=== PATIENT | female | born 1990 | race Caucasian/White ===

== ENCOUNTER 2025-02-21 15:49 | Emergency (ER) | payer MEDICAID, SELFPAY ==
--- NOTE | ~2025-02-21 | CT_ITS ---
EXAMINATION: CT HEAD WITHOUT IV CONTRAST HISTORY: L sided headache. TECHNIQUE: Unenhanced helical CT of the head was performed per standard departmental protocol. Coronal and sagittal reformats of the head were also evaluated. One or more of the following techniques was used for dose reduction: Automated exposure control, adjustment of the mA and/or kV according to patient size, use of iterative reconstruction technique. DLP: 591 mGy-cm COMPARISON: There are no prior studies available for comparison. FINDINGS: BRAIN: The brain parenchyma is unremarkable. There is normal romeo/white differentiation. The ventricular system is normal in size and configuration. There is no mass effect or midline shift. No intra- or extra-axial fluid collections are identified. SINUSES: The visualized paranasal sinuses are clear. The mastoid air cells and middle ear cavities are well pneumatized. ORBITS: The visualized orbits are unremarkable. BONES/SOFT TISSUES: The extracranial soft tissues are unremarkable. The calvarium is intact. No suspicious lytic or sclerotic lesions. CT/CT head/brain wo IV con IMPRESSION: Unremarkable exam. Electronically signed by: Ayesha Navas MD 02/21/2025 05:11 PM EDT
[2025-02-21 16:01] VITALS: BP 91/58; PULSE 86; RESP 18; TEMP 36.9; O2SAT 100; BMI 24.9
--- NOTE | 2025-02-21 16:05 | ED_ITS ---
HPI - General Adult General Chief complaint: Headache Stated complaint: migraine, popped blood vessels L eye Time Seen by Provider: 02/21/25 17:43 Source: patient, RN notes reviewed and old records reviewed Mode of arrival: ambulatory Limitations: no limitations History of Present Illness ED Provider: Mann REDDY narrative: 34-year-old female who denies any past medical history presents for evaluation of a headache. She reports a headache for the last 3 days in his mostly left-sided. She has had intermittent light sensitivity. She has a history of headaches but reports not as bad as this one. She also has a subconjunctival hemorrhage in the left that she woke up with this morning pain She denies rubbing her eyes or any head trauma denies any fevers, chills. No upper respiratory symptoms with cough, congestion, sore throat or runny nose no other complaints or concerns at this time Related Data Previous Rx's ?Medication ?Instructions ?Recorded sumatriptan succinate 25 mg tablet See Rx Instructions PO .COMPLEX 02/21/25 #20 tabs Allergies Allergy/AdvReac Type Severity Reaction Status Date / Time acetaminophen AdvReac Hypotension Verified 02/21/25 16:05 metoclopramide (From Reglan) AdvReac Anxiety Verified 02/21/25 16:05 Review of Systems 2 Constitutional: Constitutional: Denies body ache(s), Denies chills, Denies fever(s) and Reports headache(s) Eyes: Eyes: Denies blurry vision, Denies exophthalmos, Denies change in vision, Denies diplopia, Denies eye discharge, Denies floaters, Denies irritation, Denies itchy eyes, Denies loss of peripheral vision, Denies loss of vision, Denies eye pain and Reports photophobia Comments: left eye redness ENT: Denies vertigo, Denies dizziness and Reports headache(s) Cardiovascular: Cardiovascular: Denies chest pain and Denies dyspnea on exertion Respiratory: Respiratory: Denies cough and Denies dyspnea on exertion Gastrointestinal: Gastrointestinal: Denies abdominal pain, Denies nausea and Denies vomiting Musculoskeletal: Musculoskeletal: Denies back pain Integumentary/Breasts: Skin/Breast: Denies rash Neurologic: Denies vertigo, Denies dizziness, Reports headache(s) and Denies loss of vision Allergic/Immunologic: Allergic/Immunologic: Denies itchy eyes PMFSH Social History Social History Alcohol intake: never Smoked in Last 30 Days: No Use of substances other than those prescribed or required for medical reasons: No Advance Directives: No Advance Directives Information Provided: Yes Patient : No Physical Exam ED Vital Signs: Vital Signs - 24 hr 02/21/25 16:01 02/21/25 18:39 02/21/25 20:47 Temperature 98.4 F 98.2 F 98.4 F Pulse Rate 86 71 76 Respiratory Rate 18 16 16 Blood Pressure 91/58 L 93/54 L 105/56 L Pulse Oximetry 100 100 99 Oxygen Delivery Method Room Air Room Air Room Air BMI result Body Mass Index 24.9 Const General: healthy appearing, comfortable, no acute distress, alert and awake Nutritional Appearance: well nourished Orientation/consciousness: patient oriented x3 HENMT Head: Yes normocephalic and Yes atraumatic Throat: Yes posterior oropharynx normal Eyes Periorbital: periorbital findings normal Eyelids: Yes eyelids normal Conjunctivae: conjunctival abnormal left subconjunctival hemorrhage ( nasal side of the eye) Sclerae: sclerae normal Corneas: corneas normal Pupils: Equal, round and reactive pupils present EOM: EOMs intact bilaterally Direct Ophthalmoscopy: photophobia Neck Neck: Yes full ROM Resp Effort & Inspection: normal respiratory effort, able to speak in complete sentences and not labored Cardio Rate: regular rate Rhythm: regular rhythm GI Inspection: No distended Palpation (GI): Soft to palpation, not firm, nontender, no guarding and not rigid Skin General skin exam: elasticity normal Neuro General: patient oriented x3 Cranial nerves: Yes CN's II-XII intact bilaterally, Yes Equal, round and reactive pupils present and Yes Bilaterally intact EOM present Cognition (Neuro): normal cognition Extrem Other: Moving all extremities well without any obvious deformities Course Course Course Narrative: This is a Rapid Medical Examination (RME) performed by Nancy Lopez PA-C in triage. Full HPI, ROS, assessment and treatment plan per primary provider in the Main ED. Hx: 34 yo F here from for L sided headache x3 days, woke up with redness to L eye. PE/vitals: subconjunctival hemorrhage to L eye. PERRLA. exam nonfocal. Plan: labs, CT Reevaluation(s) Reevaluation #1: Patient reports feeling significantly better after Toradol but notably feels as though the Imitrex /sumatriptan helped more so. We will discharge her with a PRN prescription. Time: 21:02 Medications Administered Discontinued Medications Generic Name Dose Route Start Last Admin Trade Name Evans PRN Reason Stop Dose Admin Ketorolac Tromethamine 30 mg 02/21/25 18:00 02/21/25 18:18 Ketorolac Tromethamine 30 Mg/Ml Vial IM 02/21/25 18:01 30 mg ONCE ONE Administration Sumatriptan Succinate 25 mg 02/21/25 18:00 02/21/25 19:32 Sumatriptan Succinate 25 Mg Tablet PO 02/21/25 18:01 25 mg ONCE ONE Administration Medical Decision Making Medical Decision Making [facility] Narrative: 34-year-old female presents for evaluation of a headache for the last 3 days. She does report a history of headaches but states this pain has been worse. Denies any trauma to the head or neck. She has no neuro deficits on exam. She does have a left subconjunctival hemorrhage but denies any eye pain, blurry vision or visual changes. I suspect this may have been due to her rubbing her eye. A CT scan of the brain was ordered this is not show any acute abnormalities. The patient does report a remote head injury many years ago in saw her doctor but did not have any imaging. She reports that she was told she may have headaches in the future from this. she reports an allergy to Reglan. no infectious symptoms to suggest an infectious cause her headache. Differential Diagnosis Differential Diagnoses: The differential diagnosis associated with the presentation includes Acute headache Migraine headache Tension headache Cluster headache Lab Data MDM Lab Attestation statement: I reviewed the patient's lab results. no leukocytosis or significant anemia. Normal platelet count. No electrolyte abnormalities warranting intervention. 02/21/25 16:15 02/21/25 16:15 Labs: Lab Results 02/21/25 Range/Units 16:15 WBC 6.2 (4.8-10.8) X10*3/uL RBC 4.00 L (4.20-5.50) X10*6/uL Hgb 12.0 (12.0-16.0) g/dl Hct 35.9 L (37.0-47.0) % MCV 89.8 (80.0-98.0) fL MCH 30.0 (27.0-33.0) pg MCHC 33.4 (31.0-35.0) g/dl RDW 12.3 (11.0-16.0) % Plt Count 268 (160-400) X10*3/uL MPV 9.1 L (9.4-12.3) fL Immature Gran % (Auto) 0.2 (0.0-0.4) % Neut % (Auto) 63.3 (45-73) % Lymph % (Auto) 28.0 (20-40) % [place] % (Auto) 5.1 (2-11) % Eos % (Auto) 3.1 (0-4) % Baso % (Auto) 0.3 (0-2) % Lymph # (Auto) 1.7 (1.2-4.9) X10*3/uL [place] # (Auto) 0.3 (0.1-1.2) X10*3/uL Eos # (Auto) 0.2 (0.0-0.4) X10*3/uL Baso # (Auto) 0.0 (0.0-0.2) X10*3/uL Abs Immat Gran (auto) 0.01 (0.00-0.03) X10*3/uL Absolute Neuts (auto) 3.9 (2.0-8.3) x10*3/uL Absolute Nucleated RBC 0.000 (0.0-0.012) X10*3/uL Nucleated RBC % (auto) 0.0 (0.0-0.2) /100WBC Sodium 139 (135-145) mmol/L Potassium 4.0 (3.3-5.1) mmol/L Chloride 108 (96-108) mmol/L Carbon Dioxide 28 (22-29) mmol/L Anion Gap 7 L (12-20) BUN 8 L (9-16) mg/dL Creatinine 0.82 (0.5-1.4) mg/dL Estim Creat Clear Calc 88.6 Estimated GFR > 60 Random Glucose 116 H (60-115) mg/dL Calcium 9.2 (8.4-10.2) mg/dL Magnesium 2.2 (1.6-2.6) mg/dL Total Bilirubin 0.4 (0.0-1.0) mg/dL AST 18 (5-31) U/L ALT 12 (0-31) U/L Alkaline Phosphatase 49 (39-117) U/L Total Protein 7.4 (6.5-8.0) g/dL Albumin 4.5 (3.5-5.0) g/dL Beta HCG, Quant < 2 mIU/mL Discharge Plan Discharge Clinical Impression: Headache Patient Disposition: Home, Self-Care Instructions: Acute Headache (ED) Additional Instructions: Your workup in the ER today was reassuring. This includes your CAT scan and blood work. You may take sumatriptan as needed for headaches. Follow up with your primary doctor return for new or worsening symptoms Prescriptions: New sumatriptan succinate 25 mg tablet See Rx Instructions .ROUTE .COMPLEX Qty: 20 0RF Rx Instructions: take 1 tab at onset of headache; if no relief may repeat 1 tab after at least 2 hrs; max = 4 tabs/24 hr Print Language: Nepali
[2025-02-21 16:23] LABS: MANUAL DIFF FLAG NO
[2025-02-21 16:26] LABS: Hematocrit 35.9 % (37.0-47.0); Hemoglobin 12.0 g/dl (12.0-16.0); Imm Gran Abs Auto 0.01 X10*3/uL (0.00-0.03); Imm Gran Pct Auto 0.2 % (0.0-0.4); Lymphocytes Absolute Auto 1.7 X10*3/uL (1.2-4.9); Mean Corpuscular HGB Conc 33.4 g/dl (31.0-35.0); Mean Corpuscular Hemoglobin 30.0 pg (27.0-33.0); Mean Corpuscular Volume 89.8 fL (80.0-98.0); NRBC Abs Auto 0.000 X10*3/uL (0.0-0.012); NRBC Pct Auto 0.0 /100WBC (0.0-0.2); Platelet Count 268 X10*3/uL (160-400); Red Blood Count 4.00 X10*6/uL (4.20-5.50); White Blood Count 6.2 X10*3/uL (4.8-10.8)
[2025-02-21 16:47] LABS: Alanine Aminotransferase 12 U/L (0-31); Albumin Level 4.5 g/dL (3.5-5.0); Alkaline Phosphatase 49 U/L (39-117); Anion Gap 7 (12-20); Aspartate Amino Transferase 18 U/L (5-31); Blood Urea Nitrogen 8 mg/dL (9-16); Calcium 9.2 mg/dL (8.4-10.2); Carbon Dioxide 28 mmol/L (22-29); Chloride 108 mmol/L (96-108); Creatinine Clr Calc Pharmacy 88.6; Estimated Glomerular Filt Rate > 60; Magnesium 2.2 mg/dL (1.6-2.6); Potassium 4.0 mmol/L (3.3-5.1); Sodium 139 mmol/L (135-145); Total Protein 7.4 g/dL (6.5-8.0)
[2025-02-21 18:39] VITALS: BP 93/54; PULSE 71; RESP 16; TEMP 36.8; O2SAT 100
[2025-02-21 20:47] VITALS: BP 105/56; PULSE 76; RESP 16; TEMP 36.9; O2SAT 99
[2025-02-21 21:10] VITALS: BP 105/56; PULSE 76; RESP 16; TEMP 36.9; O2SAT 99
== END 2025-02-21 21:11 | disposition home or self-care (01) ==
PROVIDERS: Physician Assistant Medical; Emergency Provider Student in an Organized Health Care Education/Training Program
DX: R51.9 Headache, unspecified (principal); H11.32 Conjunctival hemorrhage, left eye
CPT/HCPCS: 36415; 70450; 80053; 83735; 84702; 85025; 96372; 99284; J1885

== ENCOUNTER → 2025-02-21 16:04 | Outpatient (BNV) | payer MEDICAID, SELFPAY | PROVIDERS: Visit Provider Radiology Diagnostic Radiology | DX: R51.9 Headache, unspecified (principal) | CPT/HCPCS: 70450 ==